=== PATIENT | female | born 1995 | race Asian ===

== ENCOUNTER 2024-02-28 07:35 | Outpatient (CLI) | payer BC ==
[2024-02-28] MEDS ORDERED: Iopamidol 300 61% 100 ML VIAL FS ONE (10:43)
== END 2024-02-28 07:36 | disposition home or self-care (01) ==
LOC: CSHRAD 07:35
PROVIDERS: ATTEND Urology
DX: N20.0 Calculus of kidney (principal); N28.1 Cyst of kidney, acquired
CPT/HCPCS: 74178; 74410; Q9967